=== PATIENT | female | born 1990 | race Caucasian/White ===

== ENCOUNTER 2018-05-22 01:37 | Observation (INO) | payer MEDICAID ==
[2018-05-22 03:28] LABS: HEMATOCRIT 41.1 % (36.0-47.0); HEMOGLOBIN 14.1 g/dL (12.0-15.5); MEAN CORPUSCULAR HEMOGLOBIN 30.7 pg (27.0-33.4); MEAN CORPUSCULAR HGB CONC 34.3 g/dL (32.0-36.0); MEAN CORPUSCULAR VOLUME 89 fl (80-97); PLATELET COUNT 167 10^3/uL (150-450); RED CELL DISTRIBUTION WIDTH 12.8 % (11.5-14.0); WHITE BLOOD COUNT 17.3 10^3/uL (4.0-10.5)
[2018-05-22 03:42] LABS: ALANINE AMINOTRANSFERASE 22 U/L (9-52); ALBUMIN 4.2 g/dL (3.5-5.0); ALKALINE PHOSPHATASE 48 U/L (38-126); ANION GAP 9 (5-19); ASPARTATE AMINO TRANSFERASE 24 U/L (14-36); BILIRUBIN,DIRECT 0.5 mg/dL (0.0-0.4); BILIRUBIN,TOTAL 0.7 mg/dL (0.2-1.3); BLOOD UREA NITROGEN 23 mg/dL (7-20); CALCIUM 9.2 mg/dL (8.4-10.2); CARBON DIOXIDE 26 mmol/L (22-30); CHLORIDE 104 mmol/L (98-107); GLUCOSE 97 mg/dL (75-110); LIPASE 46.6 U/L (23-300); POTASSIUM 3.8 mmol/L (3.6-5.0); SODIUM 139.1 mmol/L (137-145); TOTAL PROTEIN 7.4 g/dL (6.3-8.2)
[2018-05-22] MEDS ORDERED: ONDANSETRON HCL INJ/PF 4 MG/2 ML SDV IV ONE (03:46)
[2018-05-22] MEDS ORDERED: MORPHINE SULFATE 10 MG/ML INJ IV ONE (03:46)
[2018-05-22] MEDS ORDERED: RINGERS SOLUTION,LACTATED 1,000 ML IV PRN (03:46)
[2018-05-22] MEDS ORDERED: KETOROLAC TROMETHAMINE INJ/PF 30 MG/1 ML SDV IV ONE (03:46)
[2018-05-22 03:49] LABS: APPEARANCE,URINE CLEAR; BILIRUBIN,URINE NEGATIVE (NEGATIVE); COLOR,URINE YELLOW; GLUCOSE, URINE NEGATIVE (NEGATIVE); KETONES,URINE NEGATIVE (NEGATIVE); LEUKOCYTE ESTERASE,URINE TRACE (NEGATIVE); NITRITE,URINE NEGATIVE (NEGATIVE); PROTEIN,URINE NEGATIVE (NEGATIVE); UROBILINOGEN,URINE NEGATIVE mg/dL (<2.0)
--- NOTE | 2018-05-22 03:50 | ER Document Report ---
ED General <ZACHARIAH URIARTE - Last Filed: 05/22/18 07:33> <YENNI FISHER - Last Filed: 05/22/18 08:34> - General Chief Complaint: Abdominal Pain Stated Complaint: ABDOMINAL/FLANK PAIN Time Seen by Provider: 05/22/18 03:29 - HPI Notes: Patient is a 28-year-old female with a history of chronic bladder issues and ovarian cyst who presents to the ED complaining of left flank pain that radiates around into her groin that started somewhat suddenly yesterday evening. Patient states that the pain has been intermittent and comes in waves. + nausea w/o vomiting. Patient states that she has had some burning with urination associated. She has not noticed any vaginal discharge, odor, or bleeding. Her last menstrual period was 2 weeks ago. She denies any drug allergies. She denies any smoking aside from occasional marijuana. Denies any headache, fever, URI, sore throat, chest pain, palpitations, syncope, cough, shortness of breath, wheeze, dyspnea, vomiting/diarrhea, loss of control of bowel or bladder, numbness/tingling, saddle anesthesia, muscle paralysis/ weakness, or rash. (ZACHARIAH URIARTE) Past Medical History - Social History Smoking Status: Never Smoker Drug Abuse: Marijuana Family History: Reviewed & Not Pertinent <ZACHARIAH URIARTE - Last Filed: 05/22/18 07:33> Review of Systems - Review of Systems -: Yes All other systems reviewed and negative <ZACHARIAH URIARTE - Last Filed: 05/22/18 07:33> Physical Exam <ZACHARIAH URIARTE - Last Filed: 05/22/18 07:33> <YENNI FISHER - Last Filed: 05/22/18 08:34> - Vital signs Vitals: Temp Pulse Resp BP Pulse Ox 98.1 F 120 H 20 118/59 L 98 05/22/18 02:04 05/22/18 02:04 05/22/18 02:04 05/22/18 02:04 05/22/18 02:04 - Notes Notes: PHYSICAL EXAMINATION: GENERAL: Well-appearing, well-nourished and in no acute distress, but does appear somewhat uncomfortable and holding her left flank. LUNGS: Breath sounds clear to auscultation bilaterally and equal. No wheezes rales or rhonchi. HEART: Regular rate and rhythm without murmurs, rubs, gallops. ABDOMEN: Soft, nontender, nondistended abdomen. No guarding, no rebound. No masses appreciated. Normal bowel sounds present. + mild left CVA tenderness Musculoskeletal: FROM to passive/active. Strength 5+/5. Extremities: No cyanosis, clubbing, or edema b/l. Peripheral pulses 2+. Capillary refill less than 3 seconds. NEUROLOGICAL: Normal speech, normal gait. PSYCH: Normal mood, normal affect. SKIN: Warm, Dry, normal turgor, no rashes or lesions noted. (ZACHARIAH URIARTE) Course - Laboratory Result Diagrams: 05/22/18 03:04 05/22/18 03:04 <ZACHARIAH URIARTE - Last Filed: 05/22/18 07:33> - Laboratory Result Diagrams: 05/22/18 03:04 05/22/18 03:04 <YENNI FISHER - Last Filed: 05/22/18 08:34> - Re-evaluation Re-evalutation: 05/22/18 06:14 Patient is an afebrile, well-hydrated, 28-year-old female who presents to the ED with a 7 mm stone in the UVJ on the left side with leukocytosis and mild UTI. Vitals are acceptable without any significant tachycardia, tachypnea, or hypoxia. PE is otherwise unremarkable. Patient's symptoms have been well controlled at this time. We will keep the patient n.p.o. at this time. She is nontoxic-appearing. I did speak with our urologist Dr. Garrett who recommended a double J procedure and medical admission. Reviewed with patient who is in agreement with plan. 05/22/18 07:33 Transfer of care to Yenni Webber NP. (ZACHARIAH URIARTE) 05/22/18 08:16 Consulted hospitalist, Dr. Kee who agrees to accept patient for admission. ( YENNI FISHER) - Vital Signs Vital signs: Temp Pulse Resp BP Pulse Ox 98.1 F 120 H 20 118/59 L 98 05/22/18 02:04 05/22/18 02:04 05/22/18 02:04 05/22/18 02:04 05/22/18 02:04 - Laboratory Laboratory results interpreted by me: 05/22/18 05/22/18 05/22/18 03:04 03:04 03:04 WBC 17.3 H Seg Neuts % (Manual) 90 H Lymphocytes % (Manual) 5 L Abs Neuts (Manual) 15.6 H BUN 23 H Direct Bilirubin 0.5 H Urine Blood MODERATE H Ur Leukocyte Esterase TRACE H Discharge <ZACHARIAH URIARTE - Last Filed: 05/22/18 07:33> - Discharge Admitting Provider: Hospitalist - Dr. Kee Unit Admitted: Medical Floor <YENNI FISHER - Last Filed: 05/22/18 08:34> - Discharge Clinical Impression: Ureteral stone with hydronephrosis Leukocytosis Qualifiers: Leukocytosis type: unspecified Qualified Code(s): D72.829 - Elevated white blood cell count, unspecified Condition: Stable Disposition: ADMITTED INPATIENT
[2018-05-22 04:05] LABS: ABSOLUTE LYMPHOCYTES# (MANUAL) 0.9 10^3/uL (0.5-4.7); ABSOLUTE MONOCYTES # (MANUAL) 0.7 10^3/uL (0.1-1.4); ABSOLUTE NEUTROPHILS# (MANUAL) 15.6 10^3/uL (1.7-8.2); BASOPHILS % (MANUAL) 1 % (0-2); EOSINOPHILS % (MANUAL) 0 % (0-6); LYMPHOCYTES % (MANUAL) 5 % (13-45); MONOCYTES % (MANUAL) 4 % (3-13); SEGMENTED NEUTROPHILS % (MAN) 90 % (42-78); TOTAL CELLS COUNTED 100
[2018-05-22 04:06] LABS: POIKILOCYTOSIS SLIGHT; TOXIC GRANULATION SLIGHT; TOXIC VACUOLATION PRESENT
[2018-05-22 04:07] LABS: HELMET CELLS SLIGHT; PLATELET COMMENT ADEQUATE; TARGET CELLS SLIGHT
--- NOTE | 2018-05-22 04:31 | RADIOLOGY REPORT (SQ) ---
EXAM DESCRIPTION: CT ABDOMEN WITHOUT IV CONTRAST COMPLETED DATE/TME: 05/22/2018 03:47 CLINICAL HISTORY: 28 years, Female, Lt flank pain COMPARISON: None. TECHNIQUE: Axial CT images of the abdomen and pelvis were obtained without contrast. Sagittal and coronal reformats were performed. DLP 288 Images stored on PACS. All CT scanners at this facility use dose modulation, iterative reconstruction, and/or weight based dosing when appropriate to reduce radiation dose to as low as reasonably achievable (ALARA). [facility]: Dose Right [facility]: CareDose [facility]: Dose Right [facility]: Teradose 4D [facility]: [employer] LIMITATIONS: None. FINDINGS: The lung bases are clear. The liver, gallbladder, pancreas, spleen, and adrenal glands are unremarkable. The right kidney appears normal. There is no evidence of right-sided nephrolithiasis or hydronephrosis. There is a 7 mm stone within the left UVJ causing moderate hydroureter and hydronephrosis. There are additional stones within the left kidney which measure up to 2 mm in size. There is no intraperitoneal free air or fluid. There is no lymphadenopathy. The stomach, small bowel, and appendix are unremarkable. The colon contains a moderate amount of stool. The uterus appears unremarkable. There is a 4.1 x 2.9 cm left adnexal cyst. The urinary bladder is unremarkable. There are no lytic or blastic bone lesions. IMPRESSION: 7 mm stone within the left UVJ causing moderate left-sided hydroureter and hydronephrosis. Additional stones within the left kidney measuring up to 2 mm in size. Left adnexal cyst. Recommend follow-up pelvic ultrasound in 6-12 weeks. TECHNICAL DOCUMENTATION: Quality ID # 436: Final reports with documentation of one or more dose reduction techniques (e.g., Automated exposure control, adjustment of the mA and/or kV according to patient size, use of iterative reconstruction technique) 2010 [employer]- All Rights Reserved
[2018-05-22] MEDS ORDERED: CEFTRIAXONE 1 GM/D5W RTU 1 GM/50 ML RTUPB IV ONE (05:00)
[2018-05-22] MEDS ORDERED: CEFTRIAXONE INJ 1000 MG VIAL ONE (05:02)
[2018-05-22] MEDS ORDERED: HYDROMORPHONE HCL INJ/PF 2 MG/ML AMPULE IV ONE (05:54)
[2018-05-22] MEDS ORDERED: NORMAL SALINE 1000 ML 1,000 ML IV PRN (06:17)
[2018-05-22] MEDS ORDERED: ACETAMINOPHEN 325 MG TABLET PO PRN (09:51)
[2018-05-22] MEDS ORDERED: IPRATROPIUM/ALBUTEROL 0.5-2.5 MG/3 ML AMPUL NEB PRN (09:51)
[2018-05-22] MEDS ORDERED: ONDANSETRON HCL INJ/PF 4 MG/2 ML SDV IV PRN (09:51)
[2018-05-22] MEDS ORDERED: FENTANYL CITRATE INJ/PF 100 MCG/2 ML AMPUL ONE ×3 (10:54→12:55)
[2018-05-22] MEDS ORDERED: MIDAZOLAM 2 MG/2 ML INJ ONE (10:54)
[2018-05-22] MEDS ORDERED: PROPOFOL INJ 200 MG/20 ML VIAL IV ONE (10:55)
[2018-05-22] MEDS ORDERED: LIDOCAINE 2% INJ (20 MG/ML) 20 ML MDV ONE (11:03)
[2018-05-22] MEDS ORDERED: FENTANYL CITRATE INJ/PF 100 MCG/2 ML AMPUL IV PRN ×3 (11:33)
[2018-05-22] MEDS ORDERED: MEPERIDINE HCL/PF INJ 25 MG/1 ML DISP.SYRIN IV PRN (11:33)
[2018-05-22] MEDS ORDERED: PROMETHAZINE HCL INJ 25 MG/1 ML VIAL IV PRN (11:33)
[2018-05-22] MEDS ORDERED: DIPHENHYDRAMINE HCL 50 MG/ML VIAL IV PRN (11:33)
--- NOTE | 2018-05-22 12:24 | PDOC CONSULTATION ---
Consultation Consult Date: 05/22/18 Attending physician:: CYNTHIA STEPHENS History of Present Illness Admission Date/PCP: 05/22/18 08:59 History of Present Illness: CRISTY STOKES is a 28 year old female Past Surgical History Past Surgical History: Reports: Orthopedic Surgery - rt knee surg Social History Smoking Status: Never Smoker - Advance Directive Resuscitation Status: Full Code Family History Family History: Reviewed & Not Pertinent Parental Family History Reviewed: No Children Family History Reviewed: No Sibling(s) Family History Reviewed.: No Medication/Allergy Home Medications: No Home Medications 05/22/18 Physical Exam Vital Signs: Temp Pulse Resp BP Pulse Ox 98.1 F 120 H 19 110/66 100 05/22/18 11:43 05/22/18 11:43 05/22/18 11:43 05/22/18 10:01 05/22/18 11:43 Results Impressions: Limited or Localized CT 05/22/18 03:47 IMPRESSION: 7 mm stone within the left UVJ causing moderate left-sided hydroureter and hydronephrosis. Additional stones within the left kidney measuring up to 2 mm in size. Left adnexal cyst. Recommend follow-up pelvic ultrasound in 6-12 weeks. TECHNICAL DOCUMENTATION: Quality ID # 436: Final reports with documentation of one or more dose reduction techniques (e.g., Automated exposure control, adjustment of the mA and/or kV according to patient size, use of iterative reconstruction technique) 2010 [employer]- All Rights Reserved Assessment & Plan - Plan Summary Plan Summary: Admit the patient and taken to the operating room with insertion of double-J catheter and left retrograde.
--- NOTE | 2018-05-22 12:27 | Operative Report ---
Operative Report DATE OF SURGERY: 05/22/18 Operative Report: Cystoscopy and possible left retrograde and extraction of stone or insertion of double-J catheter PREOPERATIVE DIAGNOSIS: Left obstructing stone POSTOPERATIVE DIAGNOSIS: Same OPERATION: Cystoscopy left retrograde and double-J insertion SURGEON: CYNTHIA STEPHENS ANESTHESIA: GA TISSUE REMOVED OR ALTERED: Stone COMPLICATIONS: None ESTIMATED BLOOD LOSS: 0 PROCEDURE: The patient in the supine position after the induction of general anesthesia the whole area prepped and scrubbed in the lithotomy position. After that 21 cystoscope sheath was inserted bladder inspected left orifice identified guidewire was inserted then we try to put insert #5 ureteral catheter we were stuck with a stone that was in the distal one third so at this point we mixed the contrast with K-Y jelly and injected the ureteral orifice and we saw that the stone is coming to the meatus of the orifice. So at this point we inserted the forceps and we stretch the meatal opening of the left orifice and we were able to go and with the forceps and grabbed the stone out. After that the patient tolerated the procedure well bladder emptied left the OR in good condition thank you
--- NOTE | 2018-05-22 13:40 | RADIOLOGY REPORT (SQ) ---
EXAM DESCRIPTION: PYELOGRAM RETROGRADE COMPLETED DATE/TIME: 05/22/2018 1:25 pm REASON FOR STUDY: RETROGRADE PYELOGRAM LEFT SIDE COMPARISON: None. FLUOROSCOPY TIME: 10 seconds 1 images saved to PACS. TECHNIQUE: Intra-operative images acquired during surgical procedure to evaluate progress. LIMITATIONS: None. FINDINGS: An image obtained from fluoro shows contrast in the left renal collecting system and urete r. IMPRESSION: Retrograde pyelogram. Refer to operative note for further information. COMMENT: Quality ID 145: Final reports for procedures using fluoroscopy that document radiation exp osure indices, or exposure time and number of fluorographic images (if radiation exposure indices are not available) Please consult full operative report of the attending physician for description of the procedure. TECHNICAL DOCUMENTATION: JOB ID: [id number] [employer]- All Rights Reserved Reading location - IP/workstation name: [email or web address]
[2018-05-22] MEDS ORDERED: RINGERS SOLUTION,LACTATED 1,000 ML IV ONE (14:00)
[2018-05-22] MEDS ORDERED: DEXAMETHASONE SOD PHOSPHATE INJ 4 MG/1 ML VIAL ONE (14:11)
[2018-05-22] MEDS ORDERED: ONDANSETRON HCL INJ/PF 4 MG/2 ML SDV ONE (14:11)
[2018-05-22] MEDS ORDERED: LIDOCAINE 2% INJ-PF (20 MG/ML) 2 ML AMPUL ONE (14:11)
[2018-05-22] MEDS: OXYCODONE-ACETAMINOPHEN 5-325 MG TABLET PO PRN ×2 (15:12→21:05)
--- NOTE | 2018-05-22 16:03 | PDOC H&P ---
History of Present Illness Admission Date/PCP: 05/22/18 08:59 Patient complains of: Left flank pain with radiation to left groin History of Present Illness: CRISTY STOKES is a 28 year old female Patient is status post cystoscopy with left retrograde and double-J cystoscopy. It appears that the stone was actually removed with forceps. CT scan showed ascending millimeter stone with the left UV J causing moderate left-sided hydroureter and hydronephrosis. Additional stones within the left kidney measuring up to 2 mm in size. Patient also has a left adnexal cyst which is known. She will follow-up with gynecology for this. She was noted to have a white count of 17,000. Presented with left flank pain with radiation to left groin. She has a known history of ovarian cyst as well as unspecified chronic bladder issues. Although urinalysis showed moderate blood with trace leukocyte esterase and 15 WBC. Given this patient's elevated white count I think is reasonable to keep at least overnight and started on empiric antibiotics with IV fluid hydration. Past Medical History Renal/ Medical History: Reports: Nephrolithiasis Past Surgical History Past Surgical History: Reports: Orthopedic Surgery - rt knee surg Social History Information Source: Patient Smoking Status: Never Smoker Drugs: Marijuana - Advance Directive Resuscitation Status: Full Code Family History Family History: Reviewed & Not Pertinent Parental Family History Reviewed: Yes Children Family History Reviewed: Yes Sibling(s) Family History Reviewed.: Yes Medication/Allergy Home Medications: No Home Medications 05/22/18 Allergies/Adverse Reactions: No Known Allergies Allergy (Unverified 05/22/18 12:51) Review of Systems All systems: reviewed and no additional remarkable complaints except as stated Physical Exam Vital Signs: Temp Pulse Resp BP Pulse Ox 98.0 F 74 22 H 107/60 97 05/22/18 15:09 05/22/18 15:09 05/22/18 15:09 05/22/18 15:09 05/22/18 15:09 Intake & Output 05/21/18 05/22/18 05/23/18 06:59 06:59 06:59 Intake Total 2500 Output Total 650 Balance 1850 General appearance: PRESENT: no acute distress, well-developed, well-nourished Head exam: PRESENT: atraumatic, normocephalic Eye exam: PRESENT: conjunctiva pink, EOMI, PERRLA. ABSENT: scleral icterus Ear exam: PRESENT: normal external ear exam Mouth exam: PRESENT: moist, tongue midline Neck exam: ABSENT: carotid bruit, JVD, lymphadenopathy, thyromegaly Respiratory exam: PRESENT: clear to auscultation margoth. ABSENT: rales, rhonchi, wheezes Cardiovascular exam: PRESENT: RRR. ABSENT: diastolic murmur, rubs, systolic murmur Pulses: PRESENT: normal dorsalis pedis pul Vascular exam: PRESENT: normal capillary refill GI/Abdominal exam: PRESENT: normal bowel sounds, soft. ABSENT: distended, guarding, mass, organolmegaly, rebound, tenderness Rectal exam: PRESENT: deferred Gentrourinary exam: PRESENT: other - mild LCVAT Extremities exam: PRESENT: full ROM. ABSENT: calf tenderness, clubbing, pedal edema Neurological exam: PRESENT: alert, awake, oriented to person, oriented to place , oriented to time, oriented to situation, CN II-XII grossly intact. ABSENT: motor sensory deficit Psychiatric exam: PRESENT: appropriate affect, normal mood. ABSENT: homicidal ideation, suicidal ideation Skin exam: PRESENT: dry, intact, warm. ABSENT: cyanosis, rash Results Laboratory Results: 05/22/18 03:04 05/22/18 03:04 MCV 89 fl (80-97) 05/22/18 03:04 MCH 30.7 pg (27.0-33.4) 05/22/18 03:04 MCHC 34.3 g/dL (32.0-36.0) 05/22/18 03:04 RDW 12.8 % (11.5-14.0) 05/22/18 03:04 Seg Neutrophils % Not Reportable 05/22/18 03:04 Lymphocytes % Not Reportable 05/22/18 03:04 Monocytes % Not Reportable 05/22/18 03:04 Eosinophils % Not Reportable 05/22/18 03:04 Basophils % Not Reportable 05/22/18 03:04 Absolute Neutrophils Not Reportable 05/22/18 03:04 Absolute Lymphocytes Not Reportable 05/22/18 03:04 Absolute Monocytes Not Reportable 05/22/18 03:04 Absolute Eosinophils Not Reportable 05/22/18 03:04 Absolute Basophils Not Reportable 05/22/18 03:04 Chloride 104 mmol/L (98-107) 05/22/18 03:04 Carbon Dioxide 26 mmol/L (22-30) 05/22/18 03:04 Anion Gap 9 (5-19) 05/22/18 03:04 Est GFR ( Amer) > 60 (>60) 05/22/18 03:04 Est GFR (Non-Af Amer) > 60 (>60) 05/22/18 03:04 Glucose 97 mg/dL (75-110) 05/22/18 03:04 Calcium 9.2 mg/dL (8.4-10.2) 05/22/18 03:04 Total Bilirubin 0.7 mg/dL (0.2-1.3) 05/22/18 03:04 AST 24 U/L (14-36) 05/22/18 03:04 ALT 22 U/L (9-52) 05/22/18 03:04 Alkaline Phosphatase 48 U/L (38-126) 05/22/18 03:04 Total Protein 7.4 g/dL (6.3-8.2) 05/22/18 03:04 Albumin 4.2 g/dL (3.5-5.0) 05/22/18 03:04 Lipase 46.6 U/L (23-300) 05/22/18 03:04 Serum HCG, Qual NEGATIVE (NEGATIVE) 05/22/18 03:04 Urine Color YELLOW 05/22/18 03:04 Urine Appearance CLEAR 05/22/18 03:04 Urine pH 5.0 (5.0-9.0) 05/22/18 03:04 Ur Specific Lorman 1.020 05/22/18 03:04 Urine Protein NEGATIVE mg/dL (NEGATIVE) 05/22/18 03:04 Urine Glucose (UA) NEGATIVE mg/dL (NEGATIVE) 05/22/18 03:04 Urine Ketones NEGATIVE mg/dL (NEGATIVE) 05/22/18 03:04 Urine Blood MODERATE (NEGATIVE) H 05/22/18 03:04 Urine Nitrite NEGATIVE (NEGATIVE) 05/22/18 03:04 Ur Leukocyte Esterase TRACE (NEGATIVE) H 05/22/18 03:04 Urine WBC (Auto) 15 /HPF 05/22/18 03:04 Urine RBC (Auto) 8 /HPF 05/22/18 03:04 Impressions: Retrograde Pyelogram 05/22/18 00:00 IMPRESSION: Retrograde pyelogram. Refer to operative note for further information. Limited or Localized CT 05/22/18 03:47 IMPRESSION: 7 mm stone within the left UVJ causing moderate left-sided hydroureter and hydronephrosis. Additional stones within the left kidney measuring up to 2 mm in size. Left adnexal cyst. Recommend follow-up pelvic ultrasound in 6-12 weeks. TECHNICAL DOCUMENTATION: Quality ID # 436: Final reports with documentation of one or more dose reduction techniques (e.g., Automated exposure control, adjustment of the mA and/or kV according to patient size, use of iterative reconstruction technique) 2010 [employer]- All Rights Reserved Assessment & Plan - Diagnosis (1) Ureteral stone with hydronephrosis Is this a current diagnosis for this admission?: Yes Plan: Patient is status post cystoscopy with left retrograde and double-J cystoscopy. It appears that the stone was actually removed with forceps. CT scan showed ascending millimeter stone with the left UV J causing moderate left-sided hydroureter and hydronephrosis. Additional stones within the left kidney measuring up to 2 mm in size. Patient also has a left adnexal cyst which is known. She will follow-up with gynecology for this. (2) Leukocytosis Qualifiers: Leukocytosis type: unspecified Qualified Code(s): D72.829 - Elevated white blood cell count, unspecified Is this a current diagnosis for this admission?: Yes Plan: Copious systemic inflammatory response syndrome however due to the quite elevated white count I think is reasonable to keep this patient overnight, hydrate her and recheck CBC in the a.m. If he is clinically stable she can be discharged home - Time Time Spent: 30 to 50 Minutes Medications reviewed and adjusted accordingly: Yes Anticipated discharge: Home Within: within 24 hours - Inpatient Certification Based on my medical assessment, after consideration of the patient's comorbidities, presenting symptoms, or acuity I expect that the services needed warrant INPATIENT care.: Yes Medical Necessity: Need For IV Fluids, Risk of Complication if Not Cared For in Hospital
[2018-05-22] MEDS: CIPROFLOXACIN HCL 500 MG TABLET PO SCH (23:13)
[2018-05-23] MEDS: OXYCODONE-ACETAMINOPHEN 5-325 MG TABLET PO PRN ×2 (03:03→10:13)
[2018-05-23 07:04] LABS: ANION GAP 8 (5-19); BLOOD UREA NITROGEN 9 mg/dL (7-20); CALCIUM 8.2 mg/dL (8.4-10.2); CARBON DIOXIDE 26 mmol/L (22-30); CHLORIDE 107 mmol/L (98-107); GLUCOSE 106 mg/dL (75-110); POTASSIUM 3.9 mmol/L (3.6-5.0); SODIUM 140.9 mmol/L (137-145)
[2018-05-23 07:08] LABS: HEMATOCRIT 34.4 % (36.0-47.0); MEAN CORPUSCULAR HEMOGLOBIN 30.8 pg (27.0-33.4); MEAN CORPUSCULAR HGB CONC 34.1 g/dL (32.0-36.0); MEAN CORPUSCULAR VOLUME 90 fl (80-97); PLATELET COUNT 136 10^3/uL (150-450); RED BLOOD COUNT 3.81 10^6/uL (3.72-5.28); RED CELL DISTRIBUTION WIDTH 13.1 % (11.5-14.0); WHITE BLOOD COUNT 13.9 10^3/uL (4.0-10.5)
[2018-05-23 07:14] LABS: HEMOGLOBIN 11.7 g/dL (12.0-15.5)
--- NOTE | 2018-05-23 09:17 | PDOC DISCHARGE SUMMARY ---
General - Admit/Disc Date/PCP Admission Date/Primary Care Provider: 05/22/18 08:59 Discharge Date: 05/23/18 - Discharge Diagnosis (1) Ureteral stone with hydronephrosis Is this a current diagnosis for this admission?: Yes (2) Leukocytosis Is this a current diagnosis for this admission?: Yes - Additional Information Resuscitation Status: Full Code Discharge Diet: Regular Discharge Activity: Activity As Tolerated Prescriptions: Ciprofloxacin HCl [Cipro 500 mg Tablet] 500 mg PO Q12 #10 tablet Home Medications: Ciprofloxacin HCl [Cipro 500 mg Tablet] 500 mg PO Q12 #10 tablet 05/23/18 History of Present Illness History of Present Illness: CRISTY STOKES is a 28 year old female Patient is status post cystoscopy with left retrograde and double-J cystoscopy. It appears that the stone was actually removed with forceps. CT scan showed ascending millimeter stone with the left UV J causing moderate left-sided hydroureter and hydronephrosis. Additional stones within the left kidney measuring up to 2 mm in size. Patient also has a left adnexal cyst which is known. She will follow-up with gynecology for this. She was noted to have a white count of 17,000. Presented with left flank pain with radiation to left groin. She has a known history of ovarian cyst as well as unspecified chronic bladder issues. Although urinalysis showed moderate blood with trace leukocyte esterase and 15 WBC. Given this patient's elevated white count I think is reasonable to keep at least overnight and started on empiric antibiotics with IV fluid hydration. Hospital Course Hospital Course: Patient had a cystoscopy with left retrograde and extraction of stone done by Dr. Babin. She was started on intravenous antibiotics and she was kept overnight due to leukocytosis. Her white count did come down from a high of 17, 000-13.9. Patient has no fever nausea and vomiting and she feels clinically improved. She is been discharged home on oral antibiotics and would follow-up as arranged in 48 hours. Patient will also follow-up with gynecology regarding her ovarian cyst. Urine culture grew gram-negative rods 10-20,000 Has no further interventions have been planned patient is been discharged home for outpatient follow-up Physical Exam Vital Signs: Temp Pulse Resp BP Pulse Ox 98.1 F 86 16 99/56 L 99 05/23/18 03:49 05/23/18 08:56 05/23/18 08:56 05/23/18 03:49 05/23/18 08:56 Intake & Output 05/22/18 05/23/18 05/24/18 06:59 06:59 06:59 Intake Total 3250 Output Total 650 Balance 2600 Weight 60.2 kg General appearance: PRESENT: no acute distress, well-developed, well-nourished Head exam: PRESENT: atraumatic, normocephalic Eye exam: PRESENT: conjunctiva pink, EOMI, PERRLA. ABSENT: scleral icterus Ear exam: PRESENT: normal external ear exam Mouth exam: PRESENT: moist, tongue midline Neck exam: ABSENT: carotid bruit, JVD, lymphadenopathy, thyromegaly Respiratory exam: PRESENT: clear to auscultation margoth. ABSENT: rales, rhonchi, wheezes Cardiovascular exam: PRESENT: RRR. ABSENT: diastolic murmur, rubs, systolic murmur Pulses: PRESENT: normal dorsalis pedis pul Vascular exam: PRESENT: normal capillary refill GI/Abdominal exam: PRESENT: normal bowel sounds, soft. ABSENT: distended, guarding, mass, organolmegaly, rebound, tenderness Rectal exam: PRESENT: deferred Extremities exam: PRESENT: full ROM. ABSENT: calf tenderness, clubbing, pedal edema Neurological exam: PRESENT: alert, awake, oriented to person, oriented to place , oriented to time, oriented to situation, CN II-XII grossly intact. ABSENT: motor sensory deficit Psychiatric exam: PRESENT: appropriate affect, normal mood. ABSENT: homicidal ideation, suicidal ideation Skin exam: PRESENT: dry, intact, warm. ABSENT: cyanosis, rash Results Laboratory Results: 05/23/18 06:42 05/23/18 06:42 05/23/18 05/23/18 06:42 06:42 WBC 13.9 H RBC 3.81 Hgb 11.7 L D Hct 34.4 L MCV 90 MCH 30.8 MCHC 34.1 RDW 13.1 Plt Count 136 L Sodium 140.9 Potassium 3.9 Chloride 107 Carbon Dioxide 26 Anion Gap 8 BUN 9 Creatinine 0.60 Est GFR ( Amer) > 60 Est GFR (Non-Af Amer) > 60 Glucose 106 Calcium 8.2 L Impressions: Retrograde Pyelogram 05/22/18 00:00 IMPRESSION: Retrograde pyelogram. Refer to operative note for further information. Limited or Localized CT 05/22/18 03:47 IMPRESSION: 7 mm stone within the left UVJ causing moderate left-sided hydroureter and hydronephrosis. Additional stones within the left kidney measuring up to 2 mm in size. Left adnexal cyst. Recommend follow-up pelvic ultrasound in 6-12 weeks. TECHNICAL DOCUMENTATION: Quality ID # 436: Final reports with documentation of one or more dose reduction techniques (e.g., Automated exposure control, adjustment of the mA and/or kV according to patient size, use of iterative reconstruction technique) 2010 [employer]- All Rights Reserved Qualifiers - * PATIENT BEING DISCHARGED WITH ANY OF THE FOLLOWING DIAGNOSIS: No Plan Time Spent: Less than 30 Minutes
[2018-05-23 09:36] VITALS: BP 105/56
[2018-05-23] MEDS ORDERED: SENNOSIDES/DOCUSATE 8.6-50 MG 1 EACH TABLET PO SCH (10:00)
[2018-05-23] MEDS: CIPROFLOXACIN HCL 500 MG TABLET PO SCH (10:14)
[2018-05-23] MEDS ORDERED: LACTULOSE SYRUP 20 GM/30 ML UDCUP PO ONE (10:30)
[2018-05-28 18:37] LABS: AMMONIUM ACID URATE 10 % (.); CALCIUM PHOSPHATE 20 % (.); COLOR White (.); MAGNESIUM AMMONIUM PHOSPHATE 65 % (.); SIZE 8x4x3 mm (.)
== END 2018-05-23 11:55 | disposition home or self-care (01) ==
LOC: ER 01:37 → INTOOBSV 08:59 → EH 08:59 → 2S 15:03
PROVIDERS: ADMIT Internal Medicine; ATTEND Internal Medicine
PROC: 0TC78ZZ Extirpation of Matter from Left Ureter, Via Natural or Artificial Opening Endoscopic (ICD-10-PCS; 2018-05-22)
PROC: BT1FZZZ Fluoroscopy of Left Kidney, Ureter and Bladder (ICD-10-PCS; principal; 2018-05-22 12:30)
DX: N13.2 Hydronephrosis with renal and ureteral calculous obstruction (principal); D72.829 Elevated white blood cell count, unspecified; N85.8 Other specified noninflammatory disorders of uterus; R65.10 Systemic inflammatory response syndrome (SIRS) of non-infectious origin without acute organ dysfunction; N39.0 Urinary tract infection, site not specified; F12.10 Cannabis abuse, uncomplicated; Z87.442 Personal history of urinary calculi; Z87.448 Personal history of other diseases of urinary system
CPT/HCPCS: 52005; 99285; 96375; 96365; 36415 ×2; 87086; 82370; 83690; 84703; 85025; 85027; 87088; 80048; 80053; 81001; 87186; 74420; 76380; G0378 ×2; C1769; J3490 ×6; J2250; J1100; J3010; J1885; J2270; J1170; J0696; J2405; J2704; 910